=== PATIENT | male | born 1955 | race Caucasian/White ===

== ENCOUNTER 2017-12-12 09:03 | Inpatient (IN) | payer OTHER ==
[~2017-12-12] VITALS: Ht 185.4 cm; Wt 89.4 kg
[2017-12-12] VITALS (12 sets, daily range): BP systolic 92–124; BP diastolic 6–73
[~2017-12-12 09:03] MED LIST: ACCUNEB SO1.25 MG/1 INH; ADVAIR HFA 230M12 GM INH; ASPIR 8181 MG PO; COLACE100 MG PO; LEVAQUIN 750 M750 MG PO; MILK OF MA2400 MG/10 PO; NICOTINE PATCH1 EAC1 TD; OXYCODONE HCL 55 MG PO; OXYCODONE HCL5 MG PO; PREDNISONE 10 M10 MG PO; TYLENOL325 MG PO
[2017-12-12] MEDS ORDERED: CEFDINIR300 MG PO (09:13)
[2017-12-12 09:30] LABS: ABSOLUTE LYMPHOCYTES 0.7 thou/uL (0.8-5.3); ABSOLUTE MONOCYTES 0.4 thou/uL (0.0-1.2); ABSOLUTE NEUTROPHILS 4.2 thou/uL (1.6-8.1); BASOPHILS 0.2 %; HEMATOCRIT 57.6 % (42.0-52.0); HEMOGLOBIN 18.6 gm/dL (14.0-18.0); LYMPHOCYTES 13.1 %; MCH 32.5 pg (26.0-34.0); MCHC 32.3 g/dL (28.0-37.0); MCV 100.6 fL (80.0-100.0); MONOCYTES 7.7 %; MPV 9.1 fl. (7.2-11.1); NUCLEATED RBCS 0 /100WBC; PLATELET COUNT* 104 thou/uL (150-400); RBC 5.72 mil/uL (4.50-6.00); RDW-CV 14.3 % (10.5-14.5); WBC 5.3 thou/uL (4.0-11.0)
[2017-12-12 09:34] LABS: ANION GAP < 0 mmol/L (7-16); BUN 24 mg/dL (7-18); CALCIUM 8.8 mg/dL (8.5-10.1); CHLORIDE 94 mmol/L (98-107); CO2 43 mmol/L (21-32); CREATININE 0.9 mg/dL (0.6-1.3); GLUCOSE 129 mg/dL (70-99); POTASSIUM 5.3 mmol/L (3.5-5.1); SODIUM 136 mmol/L (136-145)
[2017-12-12 09:38] LABS: ALBUMIN 3.7 g/dL (3.4-5.0); ALKALINE PHOSPHATASE 76 U/L (46-116); MAGNESIUM 2.1 mg/dL (1.8-2.4); SGOT 41 U/L (15-37); SGPT 43 U/L (30-65); TOTAL BILIRUBIN 0.6 mg/dL (<0.1-1.0); TOTAL PROTEIN 7.3 g/dL (6.4-8.2)
[2017-12-12 11:00] LABS: APTT 33.1 Seconds (25.0-31.3); INR 1.1; PROTIME 10.6 Seconds (9.20-11.50)
[2017-12-12 11:04] LABS: TROPONIN-I LEVEL 0.31 ng/mL (<0.06)
[2017-12-12 11:30] LABS: BE 10.1 mmol/L (-2 to +3)
[2017-12-12 11:34] LABS: HCO3 43.5 mmol/L (22.0-26.0); PCO2 106.3 mmHg (35.0-45.0)
[2017-12-12 13:07] LABS: URINE BILIRUBIN NEGATIVE (Negative); URINE BLOOD NEGATIVE (Negative); URINE CLARITY CLEAR; URINE COLOR YELLOW; URINE GLUCOSE-RANDOM NEGATIVE (Negative); URINE KETONES NEGATIVE (Negative); URINE LEUKOCYTES-REFLEX NEGATIVE (Negative); URINE NITRITE-REFLEX NEGATIVE (Negative); URINE PROTEIN NEGATIVE (Negative); URINE SPECIFIC GRAVITY 1.015 (1.005-1.030); URINE UROBILINOGEN 0.2 E.U./dl (0.2-1.0)
--- NOTE | 2017-12-12 14:35 | NUR ---
PATIENT ADMITTED TO ROOM 007 FROM ER AT 1320. PATIENT ARRIVED ON NRB WITH SAT AT 97%. TRANSFERED BY PIVOTING FROM ER CART TO BED. BIPAP REPLACED ON PATIENT 16/ FIO2 40% WITH SAT AT 94%. DENIES ANY PAIN. TELEMETRY ON LPN OR MEDICAL ASSISTANT TRACES NSR. BP LOW, 80 MG LASIX ADMINISTERED IN ER. HOB ELEVATED, PATIENT UNABLE TO LAY FLAT AT THIS TIME TO. D-DIMER ELEVATED BUT AT THIS TIME CANNOT TOLERATE CTA PER ER. REPEAT 40MG LASIX ONETIME BY CARDIOLOGY, BUT ELECTRICIAN MANAGER IN COMPLETING ECHO AT THIS TIME. AND DAUGHTER PRESENT, UPDATED ON PLAN OF CARE, AGREEABLE TO PLAN AND DENIES FURTHER QUESTIONS AT THIS TIME. CALL LIGHT EDUCAITON PROVIDED, CALL LIGHT WITHIN REACH, FALL RISK PRECAUTIONS IN PLACE. WILL CONTINUE WITH OUTLINED PLAN OF CARE.
--- NOTE | 2017-12-12 16:08 | 2DMMODE ---
[place] [address] 2 D/M-MODE ECHOCARDIOGRAM Name: CHINO YEAGER [facility]#: [id number] Admission: 12/12/17 Attend Phys: Kavon Ashton Discharge: Date of : 57 Date of Service: 12/12/17 1608 Report #: [id number] THIS REPORT FOR: //name// APPROVED REPORT Study performed: 12/12/2017 14:25:56 EXAM: Comprehensive 2D, Doppler, and color-flow Echocardiogram Patient Location: In-Patient Room #: [facility] Status: routine BSA: 2.17 HR: 69 bpm BP: 99/71 mmHg Rhythm: NSR Other Information Study Quality: Good Indications Dyspnea 2D Dimensions LVEF(%): 77.64 (>50%) IVSd: 11.63 (7-11mm) LVOT Diam: 27.51 (18-24mm) LVDd: 40.42 mm PWd: 9.91 (7-11mm) Ascending Ao: 29.68 (22-36mm) LVDs: 21.91 (25-40mm) Aortic Root: 34.47 mm Dee's LVEF: 77.64 % Volumes Left Atrial Volume (Systole) LA ESV Index: 18.60 mL/m2 Aortic Valve AoV Peak Roc.: 1.59 m/s AO Peak Gr.: 10.10 mmHg LVOT Max P.27 mmHg AO Mean Gr.: 5.67 mmHg LVOT Mean P.04 mmHg LVOT Max V: 0.75 m/s AO V2 VTI: 25.77 cm LVOT Mean V: 0.46 m/s WILI (VTI): 4.04 cm2 LVOT V1 VTI: 17.51 cm Mitral Valve E/A Ratio: 0.89 [place] [address] 2 D/M-MODE ECHOCARDIOGRAM Name: CHINO YEAGER Room: [facility] IN .R.#: [id number] Admission: 12/12/17 Attend Phys: Kavon Ashton Discharge: Date of : 57 Date of Service: 12/12/17 1608 Report #: [id number] MV Decel. Time: 354.30 ms MV E Max Roc.: 0.50 m/s MV PHT: 102.75 ms MVA (PHT): 2.14 cm2 TDI E/Lateral E': 4.17 E/Medial E': 6.25 Medial E' Roc.: 0.08 m/s Lateral E' Roc.: 0.12 m/s Pulmonary Valve PV Peak Roc.: 0.76 m/s PV Peak Gr.: 2.33 mmHg Left Ventricle The left ventricle is normal size. There is normal LV segmental wall motion. There is normal left ventricular wall thickness. Left ventricular systolic function is normal. LVEF is 65-70%. Grade I - abnormal relaxation pattern. Right Ventricle Right ventricle is moderately dilated. The right ventricular systolic function is normal. Atria The left atrium size is normal. Right atrium is moderately dilated. The right atrium size is normal. Aortic Valve Mild aortic valve sclerosis. No aortic regurgitation is present. There is no aortic valvular stenosis. Mitral Valve The mitral valve is normal in structure. Trace mitral regurgitation. No evidence of mitral valve stenosis. Tricuspid Valve The tricuspid valve is normal in structure. Unable to assess PA pressure. Trace tricuspid regurgitation. Pulmonic Valve The pulmonary valve is normal in structure. Trace pulmonic regurgitation. Great Vessels The aortic root is normal in size[place] [address] 2 D/M-MODE ECHOCARDIOGRAM Name: CHINO YEAGER Room: [address] IN [facility]#: [id number] Admission: 12/12/17 Attend Phys: Kavon Ashton Discharge: Date of : 57 Date of Service: 12/12/17 1608 Report #: [id number] Pericardium There is no pericardial effusion. Left pleural effusion. <Conclusion> The left ventricle is normal size. There is normal left ventricular wall thickness. Left ventricular systolic function is normal. LVEF is 65-70%. Grade I - abnormal relaxation pattern. Right ventricle is moderately dilated. Right atrium is moderately dilated. Mild aortic valve sclerosis. There is no aortic valvular stenosis. Trace mitral regurgitation. Unable to assess PA pressure. Trace tricuspid regurgitation. IVC is dilated. <ELECTRONICALLY SIGNED> By: Humphrey Alvarez MD, FACC 12/12/17 1608 1608 1608 Humphrey Alvarez MD, FACC /INF
[2017-12-12 16:40] LABS: BE 13.9 mmol/L (-2 to +3); pH 7.324 (7.340-7.450)
--- NOTE | 2017-12-12 16:41 | EKG ---
[place] [address] ELECTROCARDIOGRAM REPORT Name: CHINO YEAGER Room: [address] ADM IN M.R.#: [id number] Admission: 12/12/17 Attend Phys: Elizabeth Garber Discharge: Date of : 57 Report #: [id number] THIS REPORT FOR: //name// [facility] ED Test Date: 2017-12-12 Test Time: 09:11:55 Pat Name: CHINO YEAGER Department: Room: [facility] Gender: M Ripening Room Attendant: Eliel BLANTON : 1955 Requested By: Josie Crockett Order Number: [id number] MD: Humphrey Alvarez Measurements Intervals [place] Rate: 87 P: 66 NE: 201 QRS: 156 QRSD: 96 T: 19 QT: 331 QTc: 398 Interpretive Statements Sinus rhythm Possible right ventricular hypertrophy Baseline wander in lead(s) I,aVL Compared to ECG 03/01/2017 07:49:16 No significant changes Electronically Signed On 12-12-2017 16:40:59 CDT by Humphrey Alvarez [email or web address] <ELECTRONICALLY SIGNED> By: Humphrey Alvarez MD, FACC 12/12/17 1640 0 0 Humphrey Alvarez MD, FAC /EPI
[2017-12-12 16:44] LABS: HCO3 45.7 mmol/L (22.0-26.0)
--- NOTE | 2017-12-12 17:29 | NUR ---
PATIENT SLOWLY PROGRESSING TOWARDS GOALS. ABGS MIDLY IMPROVED. RESULTS CALLED TO DR ROLDAN. ORDERS TO ONLY ALLOW PATIENT OFF BIPAP FOR AT MOST AN HOUR, BUT IF PATIENT BECOMES MORE SOB OR DESATURATES BIPAP NEEDS TO REMAIN ON. CONTINUES TO DENY PAIN. ENCOURAGED TO COUGH AND DEEP BREATHE AND LOOSEN SECRETIONS. ECHO COMPLETED. DR MACHADO ON FLOOR AND DISCUSSED RESULTS. NO NEW ORDERS. PATIENT'S BLOOD PRESSURES SOFT AFTER 120MG TOTAL OF LASIX TODAY, BUT REMAIN ADEQUATE. NO OTHER NEW ACUTE CONCERNS.
[2017-12-12 17:36] LABS: INFLUENZA A ANTIGEN None Detected (None Detect); INFLUENZA B ANTIGEN None Detected (None Detect)
[2017-12-13] VITALS (20 sets, daily range): BP systolic 82–108; BP diastolic 48–64
[2017-12-13 03:39] LABS: HEMATOCRIT 49.5 % (42.0-52.0); MCH 32.6 pg (26.0-34.0); MCHC 32.5 g/dL (28.0-37.0); MCV 100.3 fL (80.0-100.0); MPV 9.2 fl. (7.2-11.1); NUCLEATED RBCS 0 /100WBC; PLATELET COUNT* 97 thou/uL (150-400); RBC 4.93 mil/uL (4.50-6.00); RDW-CV 14.1 % (10.5-14.5); WBC 3.1 thou/uL (4.0-11.0)
[2017-12-13 03:42] LABS: HEMOGLOBIN 16.1 gm/dL (14.0-18.0)
[2017-12-13 04:01] LABS: ALBUMIN 2.8 g/dL (3.4-5.0); ALKALINE PHOSPHATASE 57 U/L (46-116); ANION GAP < 0 mmol/L (7-16); BUN 22 mg/dL (7-18); CALCIUM 7.9 mg/dL (8.5-10.1); CHLORIDE 94 mmol/L (98-107); CO2 44 mmol/L (21-32); CREATININE 0.8 mg/dL (0.6-1.3); GLUCOSE 130 mg/dL (70-99); MAGNESIUM 1.9 mg/dL (1.8-2.4); POTASSIUM 5.2 mmol/L (3.5-5.1); SGOT 28 U/L (15-37); SGPT 34 U/L (30-65); SODIUM 134 mmol/L (136-145); TOTAL BILIRUBIN 0.6 mg/dL (<0.1-1.0); TOTAL PROTEIN 5.4 g/dL (6.4-8.2); TROPONIN-I LEVEL 0.21 ng/mL (<0.06)
--- NOTE | 2017-12-13 05:21 | NUR ---
PT REMAINS ON BIPAP AND TOLERATING FIO2 70% SATS 93% PT RESTING COMFORTABLE IN BED. PT SL. PT SR ON MONITOR. AM LABS REVIEWED. PT AFEBRILE.
[2017-12-13 05:34] LABS: BE 13.2 mmol/L (-2 to +3); PO2 70.9 mmHg (75.0-100.0)
[2017-12-13 05:37] LABS: HCO3 46.5 mmol/L (22.0-26.0)
--- NOTE | 2017-12-13 05:45 | NUR ---
PAGED HOSPITALIST FOR CRITICAL ABG RESULTS.
--- NOTE | 2017-12-13 05:47 | NUR ---
RESPIRATORY THERAPY ADMINISTERING BREATHING TREATMENT. RT CHANGED SETTINGS ON BIPAP TO AVAP WITH TIDAL VOLUME 550, RATE 20 IN ATTEMPT TO REDUCE CO2 WHILE AWAITING RETURN CALL FROM PHYSICAN.
[2017-12-13 05:55] LABS: ABSOLUTE LYMPHOCYTES 0.2 thou/uL (0.8-5.3); ABSOLUTE NEUTROPHILS 2.9 thou/uL (1.6-8.1); ANISOCYTOSIS 1+; LARGE PLATELETS RARE; PLATELET ESTIMATE DECREASED; POIKILOCYTOSIS 1+
[2017-12-13 06:26] LABS: BE 15.2 mmol/L (-2 to +3); PO2 89.1 mmHg (75.0-100.0)
[2017-12-13 06:30] LABS: pH 7.243 (7.340-7.450)
[2017-12-13 06:31] LABS: HCO3 49.6 mmol/L (22.0-26.0); PCO2 117.7 mmHg (35.0-45.0)
--- NOTE | 2017-12-13 06:31 | NUR ---
SPOKE WITH DR SOLORZANO AND REPORTED CRITICAL ABG RESULTS. RECIEVED ORDER TO CONSULT PULMONARY. SPOKE WITH DR NICHOLSON AND REPORTED PT'S HISTORY, TREATMENT, CHEST XRAY RESULTS AND CRITICAL ABG RESULTS. REPORTED CHANGES MADE ON BIPAP. NO NEW ORDERS RECIEVED AT THIS TIME.
[2017-12-13 07:58] LABS: CHOLESTEROL 122 mg/dL (<200); HDL CHOLESTEROL 32 mg/dL (>40); LDL CHOLESTEROL 79 mg/dL (<100); TC:HDL 3.8 Ratio (Not establshd); TRIGLYCERIDE 57 mg/dL (<150); VLDL 11 mg/dL (<40)
[2017-12-13 07:59] LABS: SERUM ASSESSMENT Clear
--- NOTE | 2017-12-13 08:13 | NUR ---
PATIENT CARE ASSUMED AT 0700. UPON ASSUMING CARE, PATIENT ON BIPAP AVAPS WITH FIO2 AT 100%. RT NOTIFIED, PATIENT COPD. O2 SAT 100% ON THIS SETTING. TITRATED TO FIO2 60%, SATS REMAINED 95%, SO TITRATED TO FIO2 50%, WHICH IS CURRENT SETTING. PATIENT AOX4, FORGETFUL AND MAKES INAPPROPRIATE STATEMENTS AT TIMES, BUT ANSWERS MOST QUESTIONS APPROPRIATELY. PULMONARY CONSULTED BY PANEL GLUER HOSPIALIST DURING NOC, PER NOC SHIFT STATED THEY WILL ROUND ON PATIENT TODAY. PATIENT DENIED CONCERNS DURING ASSESSMENT, BUT NOW ASKING ABOUT EATING. STATED "WE NEED TO SEE THIS PULMONARY DOCTOR BECAUSE WE NEED TO FIGURE OUT THIS FOOD SITUATION" EDUCATED THAT AIRWAY/BREATHING IS OUR PRIORITY AT THIS TIME. EDUCATED ON WHAT COULD HAPPEN IF WE DON'T FOCUS ON BREATHING AT THIS TIME. PATIENT NOW AGREEABLE TO PLAN OF CARE. WILL CONTINUE WITH CURRENT PLAN OF CARE.
--- NOTE | 2017-12-13 09:01 | NUR ---
PATIENT STATED HIS NOSE IS STARTING TO BE A LITTLE SORE, NO OPEN SKIN NOTED, BANDAID PLACED ON BRIDGE OF NOSE TO PROMOTE SKIN INTEGRITY UNDER BIPAP.
--- NOTE | 2017-12-13 10:01 | NUR ---
PATIENT CONTINUALLY ASKING ABOUT FOOD AND GOING BACK TO WORK. DOES NOT SEEM TO UNDERSTAND SEVERITY OF SITUATION. FREQUENT REINFORCEMENT OF EDUCATION NEEDED. DR HYMAN IN TO SEE PATIENT THIS AM. WILL ALLOW PATIENT TO BE OFF BIPAP FOR 30 MINUTES AT MAX TO EAT, BUT MUST REMAIN ON BIPAP.
--- NOTE | 2017-12-13 11:00 | NUR ---
SPOKE WITH PT AND . PT WAS DIAGNOSED WITH COPD ABOUT A YEAR AGO, HE HAS HOME O2 FROM [facility] AND IS NORMALLY ON 02 2L. HE SAID HIS OXYGEN WAS JUST INCREASED BY HIS DOCTOR TO 4L. PT HAS BEEN WORKING FULLL-TIME, HE WORKS FOR A SECURITY COMPANY. HE HAS NOT BEEN WEARING HIS OXYGEN AT WORK. HE SAID HE CAN'T EVEN WEAR A REGULAR NECKTIE, HE HAS TO WEAR A CLIP-ON TIE, SO THERE IS NO WAY HE CAN WEAR OXYGEN WHILE HE IS WORKING. ASKING ABOUT DISABILITY OR RETIRING EARLY FROM HIS JOB. PT HAS NO SHORT TERM OR LONG TIME DISABILITY FROM WORK. DISCUSSED OPTIONS, IF HE RETIRES OR QUITS HIS JOB, THEN HE LOSES HIS HEALTH INSURANCE. HE CAN'T DO HIS EXISTING JOB WITH OXYGEN BUT SUGGESTED HE TALK WITH HIS COMPANY (HE HAS WORKED THERE FOR 25 YEARS) TO SEE IF THEY COULD MOVE HIM INTO ANOTHER POSITION THAT HE COULD WEAR HIS O2 AT WORK. HAS JUST GONE THRU THE PROCESS OF GETTING DISABILITY, SHE SAID IT TOOK HER 4 YEARS AND SHE HAD TO GET A ANALYTICS SPECIALIST TO GET IT TO GO THRU, SO SHE IS FAMILIAR WITH THE PROCESS. TOLD PT THAT HIS OXYGEN NEEDS COULD BE RE-EVALUATED PRIOR TO DISCHARGE, TO SEE WHAT OXYGEN AMOUNT HE NEEDS TO BE ON. CASE MGT WILL CONTINUE TO FOLLOW. PT'S PCP IS LISTED DR. KAUR, SAID PT WON'T BE RETURNING TO SEE HIM, THEY WILL FIND A NEW PHYSICIAN. WILL PROVIDE PT WITH INFO ON A NEW PCP.
--- NOTE | 2017-12-13 12:43 | CON ---
[address] [address] CONSULTATION Name: CHINO YEAGER Room: [address] IN M.R.#: [id number] Admission: 12/12/17 Attend Phys: Elizabeth Garber Discharge: Date of : 57 Report #: [id number] THIS REPORT FOR: //name// CC: Basil Ashton REASON FOR CONSULTATION: Acute respiratory failure. HISTORY OF PRESENT ILLNESS: The patient is a 62-year-old male patient who smoked for a long time, and he told me he tried to quit last year for a few months, but he now smokes around 10 cigarettes per day. Last year, he was told he has COPD after a hernia surgery. Since then, he has been on 1 inhaler, which he does not know the name of. Also, he had been on oxygen since then 24 x 7. Again, he continues to smoke. He presented to the hospital after his took him to his primary care doctor 2 days ago because the patient had some wheezes, and he was confused and not acting right. His oxygenation was low, and his oxygen was increased from 2 liters to 4 liters. His PCP told him to go to the ER if he does not get better. He was started on antibiotics, he took 1 dose. However, his ended up bringing him to the ER. He was placed on BiPAP. He was found to have acute hypercapnic respiratory failure. This morning, he was on AVAP setting at 50% FiO2. His mental status is better, and he is able to provide some history. He denied wheezes, feeling shortness of breath, although his disagreed, she told me he had wheezes over the last few days. He has no fever, no cough, no sputum production, no sick contact, no nasal discharge or obstruction, no sore throat, seems to be tolerating the BiPAP well. SOCIAL HISTORY: He is . He continues to smoke 10 cigarettes per day for a long time. Does not drink alcohol excessively, does not abuse drugs. ALLERGIES: PENICILLIN. HOME MEDICATIONS: He is on cefdinir and aspirin. He uses some kind of inhaler, he does not know the name of. PAST MEDICAL HISTORY: Chronic respiratory failure, on home oxygen, COPD. He has history of bilateral cataract extraction, dental extraction. Appendectomy, inguinal hernia repair. FAMILY HISTORY: Positive for heart disease. REVIEW OF SYSTEMS: He denied fever, chills, visual changes. He denied dizziness or headache, although his told me he was confused in the last few days, but no definite change in his breathing status according to him. He denied vomiting, nausea, joint swelling or lower extremity edema or calf pain. The rest of the review of system was negative. PHYSICAL EXAMINATION: [place] [address] CONSULTATION Name: CHINO YEAGER Room: [address] IN [facility]#: [id number] Admission: 12/12/17 Attend Phys: Elizabeth Garber Discharge: Date of : 57 Report #: [id number] VITAL SIGNS: He is on BiPAP 50% FiO2, O2 saturation 91%. Blood pressure 101/58, breathing 15 times a minute, pulse rate of 70, temperature 36.7. GENERAL: Elderly gentleman, on BiPAP, seems to be tolerating that well, provided appropriate history. Not in distress. HEENT: Head normocephalic, atraumatic. Oral cavity not examined. He had BiPAP mask in place. External ear looks healthy and normal. NECK: Supple. No palpable lymph nodes. No palpable thyroid. Trachea central. CHEST: Diminished air movement bilaterally, prolonged expiratory phase with expiratory wheeze. HEART: S1, S2. No murmur, no gallop. ABDOMEN: Benign, soft, lax, nontender, positive bowel sounds. EXTREMITIES: Lower extremity, trace edema, equal bilaterally. No calf tenderness. SKIN: Normal for age and race, no rash. PSYCHIATRIC: Mood and affect difficult to evaluate, but he was calm and quiet. NEUROLOGIC: Moving 4 extremities spontaneously. No focal weakness. Cranial nerves grossly normal, although difficult to evaluate with the BiPAP mask in place. LABORATORY DATA: His chest x-ray upon hospitalization showed basilar atelectasis, possible infiltrate at the bases. His white blood count is 5.3, hemoglobin 18.6, platelet of 104. His creatinine is 0.9, with a sodium of 132, potassium 5.2, carbon dioxide was noted to be elevated at 44. His INR is 1.1. Influenza rapid screen negative for A and B influenza. Multiple ABGs were done, noted he has hypercapnic respiratory failure. The last set of ABG, 7.24/117/89, and this was done on AVAPS on BiPAP. IMPRESSION: 1. Acute hypoxic and hypercapnic respiratory failure on chronic. 2. Chronic obstructive pulmonary disease exacerbation. 3. Encephalopathy secondary to above, although improving. 4. Pulmonary infiltrates, possible pneumonia. PLAN: At this point, would continue the patient on BiPAP, although his CO2 is high, but he is tolerating that very well. I would keep him in the ICU. Continue antibiotics, continue scheduled nebulization treatment. He will be on IV steroids. I agree with p.r.n. diuresis, monitor fluid status and avoid fluid overload. His echocardiogram demonstrated preserved ejection fraction with grade 1 diastolic dysfunction, trace pulmonary regurg was noted. His O2 need to be reevaluated before discharge, can be considered for noninvasive ventilation. I did discuss with RN. If he keeps his O2 saturation in a safe place 89% and above by nasal cannula, we can start feeding him, but it needs to be BiPAP. We will follow up ABGs and chest [place] [address] CONSULTATION Name: CHINO YEAGER Room: [address] IN [facility].#: [id number] Admission: 12/12/17 Attend Phys: Elizabeth Garber Discharge: Date of : 57 Report #: [id number] Thank you for the consult. Critical care time 35 minutes. <ELECTRONICALLY SIGNED> By: Huong Melendez MD 12/13/17 1243 1020 [id number] Melendez MD /nt
--- NOTE | 2017-12-13 17:33 | NUR ---
PATIENT SOMEWHAT PROGRESSING TOWARDS GOALS. MENTATION MORE CLEAR TODAY. REMAINS ON BIPAP UNLESS WHEN EATING PER PULMONOLOGY. TOLERATES BIPAP WELL. 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 CTA RESULTED NEGATIVE FOR PULMONARY EMBOLISM.
--- NOTE | 2017-12-13 19:39 | NUR ---
RECIEVED REPORT AND ASSUMED CARE OF PT AT 1900. PT ON HIGH FLOW NASAL CANULA AT THAT TIME. PT PLACED ON BIPAP AFTER COMPLETING HANDOFF AND ASSESSMENT. CALL LIGHT IN REACH, PT USING APPROPRIATELY.
[2017-12-14] VITALS (14 sets, daily range): BP systolic 89–110; BP diastolic 54–67
[2017-12-14 02:06] LABS: GLYCOHEMOGLOBIN (HGB A1C) 5.6 % (4.8-5.6)
[2017-12-14 02:52] LABS: HEMATOCRIT 47.4 % (42.0-52.0); HEMOGLOBIN 15.6 gm/dL (14.0-18.0); MCH 32.3 pg (26.0-34.0); MCV 97.9 fL (80.0-100.0); MPV 8.8 fl. (7.2-11.1); NUCLEATED RBCS 0 /100WBC; PLATELET COUNT* 109 thou/uL (150-400); RBC 4.84 mil/uL (4.50-6.00); RDW-CV 13.7 % (10.5-14.5); WBC 9.1 thou/uL (4.0-11.0)
[2017-12-14 03:15] LABS: ALBUMIN 2.7 g/dL (3.4-5.0); ALKALINE PHOSPHATASE 51 U/L (46-116); BUN 22 mg/dL (7-18); CALCIUM 8.4 mg/dL (8.5-10.1); CHLORIDE 96 mmol/L (98-107); CREATININE 0.8 mg/dL (0.6-1.3); GLUCOSE 155 mg/dL (70-99); SGOT 19 U/L (15-37); SGPT 27 U/L (30-65); SODIUM 138 mmol/L (136-145); TOTAL BILIRUBIN 0.6 mg/dL (<0.1-1.0); TOTAL PROTEIN 5.3 g/dL (6.4-8.2)
[2017-12-14 03:41] LABS: CO2 > 45 mmol/L (21-32)
[2017-12-14 04:15] LABS: ABSOLUTE LYMPHOCYTES 0.1 thou/uL (0.8-5.3); ABSOLUTE MONOCYTES 0.1 thou/uL (0.0-1.2); ABSOLUTE NEUTROPHILS 8.9 thou/uL (1.6-8.1); PLATELET ESTIMATE DECREASED
[2017-12-14 04:16] LABS: ANISOCYTOSIS Occasional; OVALOCYTES Occasional
[2017-12-14 08:57] LABS: BE 16.4 mmol/L (-2 to +3); pH 7.362 (7.340-7.450)
[2017-12-14 08:59] LABS: HCO3 47.6 mmol/L (22.0-26.0); PCO2 85.8 mmHg (35.0-45.0); PO2 58.7 mmHg (75.0-100.0)
--- NOTE | 2017-12-14 10:45 | NUR ---
DR LINDSAY WOULD LIKE THE PATIENT TO REMAIN IN ICU FOR ANOTHER 24 HOURS FOR MONITORING. NO TRANSER TO OCCUR AT THIS TIME
--- NOTE | 2017-12-14 16:52 | NUR ---
PATIENT REMAINS ON CANNULA 12 LITERS. DENIES CP OR SOA. TAKING PO WELL.PROGRESSING.
[2017-12-15] VITALS (14 sets, daily range): BP systolic 89–111; BP diastolic 55–67
[2017-12-15 03:27] LABS: pH 7.385 (7.340-7.450)
[2017-12-15 03:29] LABS: BE 16.5 mmol/L (-2 to +3); HCO3 46.6 mmol/L (22.0-26.0); PCO2 79.6 mmHg (35.0-45.0); PO2 64.7 mmHg (75.0-100.0)
[2017-12-15 04:52] LABS: HEMATOCRIT 46.9 % (42.0-52.0); HEMOGLOBIN 15.3 gm/dL (14.0-18.0); MCH 32.4 pg (26.0-34.0); MCHC 32.6 g/dL (28.0-37.0); MCV 99.5 fL (80.0-100.0); MPV 8.7 fl. (7.2-11.1); RBC 4.71 mil/uL (4.50-6.00); RDW-CV 13.8 % (10.5-14.5); WBC 7.9 thou/uL (4.0-11.0)
[2017-12-15 05:05] LABS: ALBUMIN 2.7 g/dL (3.4-5.0); ALKALINE PHOSPHATASE 52 U/L (46-116); ANION GAP < 0 mmol/L (7-16); BUN 19 mg/dL (7-18); CALCIUM 8.5 mg/dL (8.5-10.1); CHLORIDE 95 mmol/L (98-107); CREATININE 0.8 mg/dL (0.6-1.3); GLUCOSE 135 mg/dL (70-99); POTASSIUM 4.9 mmol/L (3.5-5.1); SGOT 22 U/L (15-37); SGPT 32 U/L (30-65); SODIUM 139 mmol/L (136-145); TOTAL BILIRUBIN 0.7 mg/dL (<0.1-1.0); TOTAL PROTEIN 5.4 g/dL (6.4-8.2)
[2017-12-15 05:07] LABS: CO2 45 mmol/L (21-32)
--- NOTE | 2017-12-15 11:30 | NUR ---
PT HAS HIS HOME OXYGEN THRU [facility], PT NEEDS A TRILOGY FOR HOME. CALLED [facility] [phone] AND SPOKE WITH DYANA. PT HAS A DX AND ABG'S TO QUALIFY HIM FOR TRILOGY. SHE WILL CHECK WITH INSURANCE TO SEE IF THEY WILL COVER A TRILOGY. TOLD HER THAT SAID HE PREFERS A TRILOGY, BUT IF NOT ABLE TO GET THAT THEN HE WOULD NEED A BIPAP.
--- NOTE | 2017-12-15 11:37 | NUR ---
PATIENT REMAINS ON 12 LITERS. DENIES CP OR SOA. COUGH BECOMING LOOSE ATTEMPTING TO CLEAR SECRETIONS.
--- NOTE | 2017-12-15 17:24 | NUR ---
REMAINS ON NASAL CANNULA. ALERT UP IN CHAIR TO SHAVE. TAKING PO WELL. PROGRESSING.
[2017-12-16] VITALS (9 sets, daily range): BP systolic 92–112; BP diastolic 53–69
[2017-12-16 04:07] LABS: HEMATOCRIT 49.6 % (42.0-52.0); HEMOGLOBIN 16.1 gm/dL (14.0-18.0); MCH 32.1 pg (26.0-34.0); MCHC 32.4 g/dL (28.0-37.0); MCV 99.2 fL (80.0-100.0); MPV 9.1 fl. (7.2-11.1); WBC 7.4 thou/uL (4.0-11.0)
--- NOTE | 2017-12-16 04:19 | NUR ---
AT START OF SHIFT PT ON 12 LITERS HI FLOW NASAL CANULA WITH O2 SAT 96%. O2 TITRATED DOWN TO 4 LITERS BY 2200. PT ON BIPAP AT 2300 WITH FIO2 OF 50%. FIO2 TITRATED DOWN TO 35% DURING NIGHT PER RESPIRATORY THERAPY.
[2017-12-16 04:28] LABS: ALBUMIN 2.9 g/dL (3.4-5.0); CALCIUM 8.6 mg/dL (8.5-10.1); CREATININE 0.9 mg/dL (0.6-1.3); TOTAL BILIRUBIN 0.5 mg/dL (<0.1-1.0); TOTAL PROTEIN 5.7 g/dL (6.4-8.2)
--- NOTE | 2017-12-16 16:21 | NUR ---
PT TRANSFERED TO ROOM 227 WITH ALL PERSONAL BELONGINGS.REPORT GIVEN TO KWESI SRINIVASAN RN. PT TRANSFERED WITH OUT ANY COMPLAINTS OF PAIN OR DISCOMFORT PT HAD TEXT WITH NEW ROOM NUMBER.
--- NOTE | 2017-12-16 16:23 | NUR ---
pt to room from icu. appears alert o x 4, denies chest pain, denies SOB at rest, on o2 at 4l per nc, PIV R ac . bipp at HS, sr on monitor
--- NOTE | 2017-12-16 17:53 | NUR ---
pt up from ICU today. O2 being titarted , on o2 per nc, BIPAP at HS, cont on IV steroids IV ABX
[2017-12-17] VITALS: BP 98/56
[2017-12-17 03:59] VITALS: BP 103/64
--- NOTE | 2017-12-17 04:46 | NUR ---
RECIEVED REPORT AT 1930. COMPLETED ASSESSMENT CHARTED. A & O, ABLE TO MAKE NEEDS KNOWN, UP WITH STANDBY, NO C/O PAIN OR DISCOMFORT AT THIS TIME. RES ON BIPAP AT NIGHT, WEARS SCDS AT NIGHT. NO C/O SOA. RES ASKS FOR COFFEE REGULARLY. WILL CONTINUE WITH PLAN OF CARE.
[2017-12-17 04:52] LABS: HEMATOCRIT 49.2 % (42.0-52.0); MCH 32.1 pg (26.0-34.0); MCHC 32.5 g/dL (28.0-37.0); MCV 98.8 fL (80.0-100.0); MPV 9.1 fl. (7.2-11.1); RBC 4.98 mil/uL (4.50-6.00); RDW-CV 14.2 % (10.5-14.5); WBC 7.4 thou/uL (4.0-11.0)
[2017-12-17 05:23] LABS: ALBUMIN 2.8 g/dL (3.4-5.0); CALCIUM 8.3 mg/dL (8.5-10.1); CREATININE 0.7 mg/dL (0.6-1.3); TOTAL BILIRUBIN 0.5 mg/dL (<0.1-1.0); TOTAL PROTEIN 5.2 g/dL (6.4-8.2)
[2017-12-17 11:30] VITALS: BP 100/52
[2017-12-17 16:00] VITALS: BP 90/57
--- NOTE | 2017-12-17 18:33 | NUR ---
PATIENT RESTING IN BED. UP IN ROOM AD JOSSIE AND HAS STEADY GAIT. PAITENT UTILIZING 3L PER NASAL CANULA WHILE AWAKE AND BIPAP WHILE ASLEEP. IV STEROIDS AND ABX PER ORDERS. HOURLY ROUNDING COMPLETD FOR PATIENT SAFETY AND PATIENT IS PROGRESSING TOWARDS GOALS.
[2017-12-18 00:04] VITALS: BP 97/60
[2017-12-18 04:00] VITALS: BP 95/63
--- NOTE | 2017-12-18 04:01 | NUR ---
ASSUMED CARE OF PT AT 1900. PT IS ALERT AND ORIENTED. VSS. PERRLA. NO COMPLAINTS OF PAIN. STEADY GAIT. PT IS ON 2 LITERS O2. PT IS IN [facility] ON THE TELEMETRY. PT IS RESTING COMFORTABLY IN BED. RESPIRATIONS ARE EVEN AND NONLABORED. WILL CONTINUE TO MONITOR PT.
--- NOTE | 2017-12-18 08:14 | CON ---
[address] [address] CONSULTATION Name: CHINO YEAGER Room: [place] [address] ADM IN M.R.#: [id number] Admission: 12/12/17 Attend Phys: Elizabeth Garber Discharge: Date of : 57 Report #: [id number] THIS REPORT FOR: //name// CC: Basil Ashton INDICATION: Acute respiratory failure secondary to COPD exacerbation with elevated NT-proBNP and slightly elevated troponins. HISTORY OF PRESENT ILLNESS: The patient is a 62-year-old gentleman with apparent COPD. He has not been on inhalers prior to this hospitalization. He has a long smoking history. He had quit, but resumed smoking approximately 3-4 months ago. He denies chest pain. He had acute onset of shortness of breath over the last couple of days and presented to the emergency room for further treatment. He is chronically on 2 liters of O2 at home. In the setting, he denies any chest pain. He has some mild orthopnea. He has dyspnea on exertion. This morning, he had shortness of breath while at rest. CARDIAC RISK FACTORS: Include chronic tobacco use and family history of coronary artery disease. SOCIAL HISTORY: The patient is . His is with him today. He is a current smoker. He does not drink alcohol. HOME MEDICATIONS: Aspirin one tablet daily. ALLERGIES: To PENICILLIN. PAST MEDICAL HISTORY: COPD. PAST SURGICAL HISTORY: Right and left inguinal hernia repair. REVIEW OF SYSTEMS: As per HPI, otherwise unremarkable. PHYSICAL EXAMINATION: VITAL SIGNS: Blood pressure 104/71, pulse 75 and regular. GENERAL: This is a pleasant gentleman who is in no distress, BiPAP mask in place. HEENT: Head is normocephalic, atraumatic. Extraocular muscles are intact. Pupils are equally round and reactive to light. NECK: Shows no jugular venous distention. There are no carotid bruits. CHEST: Reveals diffusely decreased breath sounds throughout with expiratory wheezes. CARDIAC: Reveals a regular rhythm with normal S1 and S2. I do not appreciate a gallop or murmur. ABDOMEN: Reveals normal bowel sounds. The abdomen [place] [address] CONSULTATION Name: CHINO YEAGER Room: [place] [address] ADM IN [facility]#: [id number] Admission: 12/12/17 Attend Phys: Elizabeth Garber Discharge: Date of : 57 Report #: [id number] EXTREMITIES: Shows 1+ ankle edema bilaterally, left greater than right. A 12-lead EKG shows sinus rhythm with possible RVH and nonspecific lateral T-wave depression. No acute ST segment changes noted. Chest x-ray shows hyperinflated lungs without heart failure. LABS: Reviewed. White blood cell count 5.3, hemoglobin 18.6, platelet count 104,000. Sodium 136, potassium 5.3, chloride 94, bicarb 43, BUN 24, creatinine 0.9, serum glucose 129. LFTs within normal limits. EGFR 86. Lactic acid 1.0. NT-proBNP 7150. Troponin 0.31 with subsequent troponin 0.20. ABG, pH 7.23, pCO2 106, pO2 59 on FiO2 40%. IMPRESSION AND RECOMMENDATION: 1. Acute respiratory failure secondary to chronic obstructive pulmonary disease exacerbation. 2. Possible acute on chronic heart failure, echocardiogram pending. The patient has received IV Lasix with prompt diuresis and is feeling better. 3. Chronic tobacco use. Cessation has been advised. 4. Elevated troponins consistent with non-ST elevation myocardial infarction. The patient is not having chest pain to suggest acute coronary syndrome. I suspect he has underlying coronary artery disease based on risk factors including family history. I believe the strain of chronic obstructive pulmonary disease exacerbation may have contributed to the elevated troponins. Once the patient has recovered, we would recommend noninvasive stress testing to further evaluate. <ELECTRONICALLY SIGNED> By: Humphrey Alvarez MD, FACC 12/18/17 0814 1424 [id number] Alvarez MD, FACC /nt
[2017-12-18 11:55] VITALS: BP 91/54
--- NOTE | 2017-12-18 14:21 | NUR ---
ORDER AND CHART NOTES FAXED TO [facility]. SPOKE WITH [facility]. HE RECEIVED ALL INFO FOR TRILOGY. HE WILL NOTIFY CM WHEN APPROVED BY INSURANCE. AWARE PT MAY BE READY FOR DC TOMORROW. ONCE APPROVED, HE STATED THEY WILL SET UP PT UP AT HOME THE DAY OF DC
[2017-12-18 15:35] VITALS: BP 91/51
--- NOTE | 2017-12-18 18:09 | NUR ---
PATIENT RESTING IN BED. UP IN ROOM AD JOSSIE. BIPAP USAGE AT HS AND 3.O L PER NASAL CANULA WHILE AWAKE. AWAITING LABS AND BLOOD GAS RESULTS TOMORROW FOR REASSESSMENT OF NEEDS. PATIENT IS AWAITING TRILOGY FOR DISCHARGE AND HOME USE. HOURLY ROUNDING COMPLETED FOR PATIENT SAFETY AND PATINET IS PROGRESSING TOWARDS GOALS.
[2017-12-18 20:00] VITALS: BP 92/59
[2017-12-19] VITALS: BP 104/61
--- NOTE | 2017-12-19 02:51 | NUR ---
PT ALERT ORIENTED. UP WITH STD BY ASSIST. O2 AT 4 LITERS NC. BIPAP HS. TELEMETRY SHOWS SR. DENIES PAIN. WILL CONTINUE TO MONITOR.
[2017-12-19 04:00] VITALS: BP 102/62
[2017-12-19 04:13] LABS: BE 10.6 mmol/L (-2 to +3); PO2 76.2 mmHg (75.0-100.0); pH 7.419 (7.340-7.450)
[2017-12-19 05:39] LABS: CALCIUM 8.2 mg/dL (8.5-10.1); CREATININE 0.8 mg/dL (0.6-1.3)
--- NOTE | 2017-12-19 06:53 | NUR ---
PT BACK ON 4 LITERS NC. MALCOLM DRAWN RESULTS IN CHART.
--- NOTE | 2017-12-19 08:50 | NUR ---
PER [facility], TRILOGY HAS BEEN APPROVED BY INSURANCE AND THEY ARE ABLE TO DELIVER AND SET UP AT [facility].
[2017-12-19] MEDS ORDERED: PREDNISONE 10 M10 MG PO (11:29)
[2017-12-19] MEDS ORDERED: PULMICORT0.5 MG/2 M INH (11:33)
[2017-12-19] MEDS ORDERED: SINGULAIR 10 MG10 M1 PO (11:34)
[2017-12-19] MEDS ORDERED: MUCINEX600 MG PO (11:35)
[2017-12-19] MEDS ORDERED: DUONEB 2.5-0.5 M3 ML INH (11:38)
[2017-12-19] MEDS ORDERED: BROVANA15 MCG/2 M INH (11:39)
[2017-12-19 11:45] VITALS: BP 89/52
[2017-12-19] MEDS ORDERED: ALBUTEROL2.5 MG/31 INH (12:15)
[2017-12-19] MEDS ORDERED: NEBULIZER MISCELL (12:16)
--- NOTE | 2017-12-19 14:48 | NUR ---
ORDER RECIEVD TO DISCHARGE TO HOME WITH HOME HEALTH. MED REC, MEDICATION EDUCATION, GIANNI FOR CONTINUOUS O2 AT REST AND WITH ACTIVITY COVERED AND STATED UNDERSTOOD BY TERRY AND . HOURLY ROUNDING COMPLETD FOR PATIENT SAFETY AND PATIENT HAS PROGRESSED TOWARDS GOALS. FOLLOW UP APPOINTMENTS WITH CARDIOLOGY AND PULMONOLOGY COVERED ANS STATED UNDERSTOOD BY TERRY. DC TIME OF 14:35.
== END 2017-12-19 14:40 | disposition home health service (06) | DRG 177 ==
LOC: M.ERS 09:03 → M.TBA-ER 10:35 → M.2W 12:11 → M.TBA-ER 12:11 → M.ICU 12:11 → M.2W 12-16 16:23
PROVIDERS: Internal Medicine; Internal Medicine Cardiovascular Disease; Internal Medicine Pulmonary Disease; Personal Emergency Response Attendant; ADMIT Internal Medicine
PROC: 5A09457 Assistance with Respiratory Ventilation, 24-96 Consecutive Hours, Continuous Positive Airway Pressure (ICD-10-PCS; principal; 2017-12-13)
DX: J69.0 Pneumonitis due to inhalation of food and vomit (principal); J96.21 Acute and chronic respiratory failure with hypoxia; I50.33 Acute on chronic diastolic (congestive) heart failure; G93.40 Encephalopathy, unspecified; J96.22 Acute and chronic respiratory failure with hypercapnia; E87.2 Acidosis; J44.1 Chronic obstructive pulmonary disease with (acute) exacerbation; E44.0 Moderate protein-calorie malnutrition; J44.0 Chronic obstructive pulmonary disease with (acute) lower respiratory infection; J15.6 Pneumonia due to other Gram-negative bacteria; Z28.21 Immunization not carried out because of patient refusal; Z99.81 Dependence on supplemental oxygen; Z88.0 Allergy status to penicillin; Z79.899 Other long term (current) drug therapy; Z79.82 Long term (current) use of aspirin; Z90.89 Acquired absence of other organs; Z98.42 Cataract extraction status, left eye; Z98.41 Cataract extraction status, right eye; Z82.49 Family history of ischemic heart disease and other diseases of the circulatory system; Z80.9 Family history of malignant neoplasm, unspecified; Z87.891 Personal history of nicotine dependence; Z68.26 Body mass index [BMI] 26.0-26.9, adult